=== PATIENT | female | born 1955 ===

== ENCOUNTER 2018-11-24 10:49 | Inpatient (IN) | payer OTHER ==
[~2018-11-24] VITALS: Ht 157.5 cm; Wt 80.7 kg
--- NOTE | 2018-11-24 11:17 | NUR ---
SE RECIBE PTE EN AMBULANCIA ALERTA Y ORIENTADA EN TIEMPO, LUGAR Y PERSONA QUIEN REFIERE DIFICULTAD RESPIRATORIA Y DOLOR DE CAMBEZA DESDE HOY. SE BALBINA S/V, DXT Y EKG LOS CUALES SE PRESENTAN A DRA. ELLER QUIEN ORDENA UBICAR PTE EN AREA DE OBSERVACION ASMA UNIT K6.
--- NOTE | 2018-11-24 11:39 | NUR ---
MS [facility] ORIENTA A PACIENTE SOBRE ORDENES MEDICAS. CANALIZA PACIENTE, COLOCA IV FLUID Y COLECTA MUESTRAS DE LABORATORIO ORDENADAS BAJO MEDIDAS ASEPTICAS. PENDIENTE A RESULTADOS DE LABORATORIO PARA RE-EVALUACION MEDICA.
--- NOTE | 2018-11-24 14:05 | NUR ---
SE RECIBE PTE DE LA UNIDA DE OBSERVACION SE UBICA EN CAMA #16 DE CHEST PAIN SE ORIENTA SOBRE TRATAMIENTO MEDICO Y LA UNIDAD. SE ADMINISTRA MEDICAMENTOS ITA ORDEN MEDICA. CONECTADA A MONITOR CARDIAC, ALERTA, ORIENTADA POR ABENA. ACOMPANADA POR FAMILIAR. SE MANTIENE EN OBSERVACION.
--- NOTE | 2018-11-24 17:40 | NUR ---
SE RECIBE PTE ALERTA Y ORIENTADA X3 EN GIUSEPPE ACOMPANADA.SE RECIBE PTE CONECTADA AMONITOR CARDIACO Y OXIMETRIA. SE RECIBE PTE CON CANULA NASAL A 3L. SE RECIBE PTE CANALIZADA ENMANO Y BRAZO DERECHO AREAS LIBRES DE EDEMA Y DE ENROJECIMIENTO. SE RECIBE PTE CON DRIP DE TRIDIL 50MG/250ML BAJANDO A 3ML/HR ITA ORDEN MEDICA. SE OBSERVA PTE ANSIOSA RESPIRANDO ABDOMINAL SE LE NOTIFICA A QUIEN ORDENA ADMINISTRAR XANAX .25MG Y COLOCAR DAWSON. SE INSERTA DAWSON DE MANERA ESTERIL DRENANDO ALA MOMETO 300ML DE ORINA COLOR AMARILLO VINCENZO. SE ADMINISTRA MEDICAMENTO ITA ORDEN MEDICA, SE EDUCA A PTE Y FAMILIARES SOBRE TRATAMIENTO MEDICO. 16:09PM SE RECIBE VALOR PANICO DE TROPONINAS EN 1.48 LAS CUALES AL MOMENTO SE NOTIFICAN A LA CUAL REFIERE SEGUIR EN TRATAMIENTO ACTUAL.
== END 2018-11-30 11:36 | disposition designated cancer center or children's hospital (05) | DRG 280 ==
LOC: ER 10:49 → SEC-K 21:16 → MEDJ 21:16
PROVIDERS: ADMIT Internal Medicine
PROC: 4A12X4Z Monitoring of Cardiac Electrical Activity, External Approach (ICD-10-PCS; principal; 2018-11-24)
PROC: 4A033R1 Measurement of Arterial Saturation, Peripheral, Percutaneous Approach (ICD-10-PCS; 2018-11-24)
PROC: 3E0F7GC Introduction of Other Therapeutic Substance into Respiratory Tract, Via Natural or Artificial Opening (ICD-10-PCS; 2018-11-24)
PROC: B246ZZZ Ultrasonography of Right and Left Heart (ICD-10-PCS; 2018-11-26)
DX: I21.4 Non-ST elevation (NSTEMI) myocardial infarction (principal); I50.23 Acute on chronic systolic (congestive) heart failure; I24.8 Other forms of acute ischemic heart disease; E11.9 Type 2 diabetes mellitus without complications; E78.00 Pure hypercholesterolemia, unspecified; I11.0 Hypertensive heart disease with heart failure